=== PATIENT | female | born 1980 | race Caucasian/White ===

== ENCOUNTER 2021-04-09 06:24 | Day surgery (SDC) | payer OTHER, SELFPAY ==
[~2021-04-09] VITALS: Ht 165.1 cm; Wt 96.6 kg
[2021-04-09] MEDS ORDERED: fentaNYL citrate 0.05 MG/ML VIAL ONE (08:02)
[2021-04-09] MEDS ORDERED: diphenhydrAMINE 50 MG/ML VIAL ONE (08:02)
[2021-04-09] MEDS ORDERED: MIDAZOLAM 5 MG/5 ML VIAL ONE (08:02)
[2021-04-09] MEDS ORDERED: fentaNYL citrate 0.05 MG/ML VIAL IVP ONE (08:45)
[2021-04-09] MEDS ORDERED: MIDAZOLAM 2 MG/2 ML VIAL IVP ONE (08:45)
== END 2021-04-09 08:59 | disposition home or self-care (01) ==
LOC: MDS 06:24 → MMU 06:25 → MDS 08:59
PROVIDERS: ATTEND Internal Medicine Gastroenterology
DX: K74.69 Other cirrhosis of liver (principal); I85.00 Esophageal varices without bleeding; K52.9 Noninfective gastroenteritis and colitis, unspecified; Z79.01 Long term (current) use of anticoagulants; Z79.899 Other long term (current) drug therapy; Z20.822 Contact with and (suspected) exposure to COVID-19
CPT/HCPCS: 43235; J2250; J3010; U0003; J1200

== ENCOUNTER 2021-11-12 07:14 | Day surgery (SDC) | payer OTHER, SELFPAY ==
[~2021-11-12] VITALS: Ht 165.1 cm; Wt 95.3 kg
[2021-11-12] MEDS ORDERED: fentaNYL citrate 0.05 MG/ML VIAL ONE (09:25)
[2021-11-12] MEDS ORDERED: diphenhydrAMINE 50 MG/ML VIAL ONE (09:25)
[2021-11-12] MEDS ORDERED: MIDAZOLAM 5 MG/5 ML VIAL ONE (09:26)
[2021-11-12] MEDS ORDERED: MIDAZOLAM 2 MG/2 ML VIAL IVP ONE (13:05)
[2021-11-12] MEDS ORDERED: fentaNYL citrate 0.05 MG/ML VIAL IVP ONE (13:05)
[2021-11-12] MEDS ORDERED: diphenhydrAMINE 50 MG/ML VIAL IVP ONE (13:05)
== END 2021-11-12 10:36 | disposition home or self-care (01) ==
LOC: MDS 07:14 → MMU 07:15 → MDS 10:36
PROVIDERS: ATTEND Internal Medicine Gastroenterology
DX: K70.30 Alcoholic cirrhosis of liver without ascites (principal); I85.10 Secondary esophageal varices without bleeding; Z79.01 Long term (current) use of anticoagulants; Z79.899 Other long term (current) drug therapy; Z20.822 Contact with and (suspected) exposure to COVID-19
CPT/HCPCS: 43244; 81025; 87426; J1200; J2250; J3010

== ENCOUNTER 2021-11-26 07:25 | Day surgery (SDC) | payer OTHER ==
[~2021-11-26] VITALS: Ht 165.1 cm; Wt 88.9 kg
[2021-11-26] MEDS ORDERED: diphenhydrAMINE 50 MG/ML VIAL ONE (09:08)
[2021-11-26] MEDS ORDERED: fentaNYL citrate 0.05 MG/ML VIAL ONE (09:09)
[2021-11-26] MEDS ORDERED: MIDAZOLAM 5 MG/5 ML VIAL ONE (09:09)
[2021-11-26] MEDS ORDERED: PROMETHAZINE 25 MG/ML VIAL ONE (11:35)
[2021-11-26] MEDS ORDERED: diphenhydrAMINE 50 MG/ML VIAL IVP ONE (13:05)
[2021-11-26] MEDS ORDERED: MIDAZOLAM 2 MG/2 ML VIAL IVP ONE (13:05)
[2021-11-26] MEDS ORDERED: fentaNYL citrate 0.05 MG/ML VIAL IVP ONE (13:05)
== END 2021-11-26 10:12 | disposition home or self-care (01) ==
LOC: MOR 07:25 → MMU 07:25 → MOR 10:12
PROVIDERS: ATTEND Internal Medicine Gastroenterology
DX: K70.30 Alcoholic cirrhosis of liver without ascites (principal); I85.10 Secondary esophageal varices without bleeding; I81 Portal vein thrombosis; Z79.01 Long term (current) use of anticoagulants; Z79.899 Other long term (current) drug therapy; Z20.822 Contact with and (suspected) exposure to COVID-19
CPT/HCPCS: 43244; 81025; 87426; J1200; J2250; J3010; J2550

== ENCOUNTER 2021-12-31 09:47 | Day surgery (SDC) | payer OTHER ==
[~2021-12-31] VITALS: Ht 165.1 cm; Wt 97.5 kg
[2021-12-31] MEDS ORDERED: diphenhydrAMINE 50 MG/ML VIAL ONE (11:36)
[2021-12-31] MEDS ORDERED: fentaNYL citrate 0.05 MG/ML VIAL ONE (11:36)
[2021-12-31] MEDS ORDERED: MIDAZOLAM 5 MG/5 ML VIAL ONE (11:37)
[2021-12-31] MEDS ORDERED: diphenhydrAMINE 50 MG/ML VIAL IVP ONE (13:50)
[2021-12-31] MEDS ORDERED: MIDAZOLAM 2 MG/2 ML VIAL IVP ONE (13:50)
[2021-12-31] MEDS ORDERED: fentaNYL citrate 0.05 MG/ML VIAL IVP ONE (13:50)
== END 2021-12-31 13:05 | disposition home or self-care (01) ==
LOC: MDS 09:47 → MMU 09:58 → MDS 13:05
PROVIDERS: ATTEND Internal Medicine Gastroenterology
DX: I85.00 Esophageal varices without bleeding (principal); Z79.899 Other long term (current) drug therapy; Z20.822 Contact with and (suspected) exposure to COVID-19
CPT/HCPCS: 43235; 81025; 87426; J1200; J2250; J3010

== ENCOUNTER 2022-02-04 07:32 | Day surgery (SDC) | payer OTHER ==
[~2022-02-04] VITALS: Ht 165.1 cm; Wt 95.3 kg
[2022-02-04 08:07] LABS: BASOPHILS % (AUTO) 0.3 % (0.0-2.0); EOSINOPHILS # (AUTO) 0.1 K/uL (0-0.4); EOSINOPHILS % (AUTO) 2.9 % (0.0-4.0); HEMATOCRIT 36.6 % (36-48); HEMOGLOBIN 12.1 g/dL (12.0-16.0); LYMPHOCYTES # (AUTO) 0.5 K/uL (2.5-16.5); MEAN CORPUSCULAR HEMOGLOBIN 28 pg (27-31); MEAN CORPUSCULAR HGB CONC 33 g/dL (33-37); MEAN CORPUSCULAR VOLUME 85.4 fL (80-94); MONOCYTES # (AUTO) 0.4 K/uL (0.8-1.0); MONOCYTES % (AUTO) 9.9 % (1.7-9.3); NEUTROPHILS # (AUTO) 2.6 K/uL (1.8-7.7); NEUTROPHILS % (AUTO) 72.9 % (42.2-75.2); PLATELET COUNT (AUTO) 62 K/uL (140-450); RED BLOOD CELL COUNT(AUTO) 4.29 MIL/uL (4.20-5.40); RED CELL DISTRIBUTION WIDTH 16.7 % (11.6-13.7); WHITE BLOOD COUNT (AUTO) 3.6 K/uL (4.8-10.8)
[2022-02-04 08:25] LABS: ALBUMIN 3.1 g/dL (3.4-5.0); CARBON DIOXIDE 23.1 mmol/L (21-32); CREATININE 0.5 mg/dL (0.6-1.3); POTASSIUM 4.1 mmol/L (3.5-5.1); TOTAL BILIRUBIN 0.6 mg/dL (0.0-1.0)
[2022-02-04] MEDS ORDERED: PROPOFOL 200 MG/20 ML VIAL IV ONE ×2 (09:13)
[2022-02-04] MEDS ORDERED: hydrALAZINE 20 MG/ML VIAL IVP PRN (09:30)
[2022-02-04] MEDS ORDERED: LACTATED RINGERS 1,000 ML IV SCH (09:30)
[2022-02-04] MEDS ORDERED: LABETALOL 20 MG/4 ML VIAL IVP PRN (09:30)
== END 2022-02-04 11:11 | disposition home or self-care (01) ==
LOC: MDS 07:32 → MMU 07:32 → MDS 11:11
PROVIDERS: ATTEND Internal Medicine Gastroenterology
DX: K70.30 Alcoholic cirrhosis of liver without ascites (principal); I85.10 Secondary esophageal varices without bleeding; I10 Essential (primary) hypertension; Z20.822 Contact with and (suspected) exposure to COVID-19; Z79.899 Other long term (current) drug therapy
CPT/HCPCS: 36415; 43244; 80053; 81025; 85025; 87426; J2704

== ENCOUNTER 2022-03-18 07:23 | Day surgery (SDC) | payer OTHER ==
[~2022-03-18] VITALS: Ht 160 cm; Wt 95.3 kg
[2022-03-18 08:09] LABS: BASOPHILS % (AUTO) 0.4 % (0.0-2.0); EOSINOPHILS # (AUTO) 0.1 K/uL (0-0.4); EOSINOPHILS % (AUTO) 3.4 % (0.0-4.0); HEMATOCRIT 34.4 % (36-48); HEMOGLOBIN 11.2 g/dL (12.0-16.0); LYMPHOCYTES # (AUTO) 0.4 K/uL (2.5-16.5); LYMPHOCYTES % (AUTO) 14.6 % (20.5-51.1); MEAN CORPUSCULAR HEMOGLOBIN 28 pg (27-31); MEAN CORPUSCULAR HGB CONC 33 g/dL (33-37); MEAN CORPUSCULAR VOLUME 84.4 fL (80-94); MONOCYTES # (AUTO) 0.3 K/uL (0.8-1.0); MONOCYTES % (AUTO) 11.2 % (1.7-9.3); NEUTROPHILS % (AUTO) 70.4 % (42.2-75.2); PLATELET COUNT (AUTO) 62 K/uL (140-450); RED BLOOD CELL COUNT(AUTO) 4.07 MIL/uL (4.20-5.40); WHITE BLOOD COUNT (AUTO) 2.9 K/uL (4.8-10.8)
[2022-03-18 08:22] LABS: ALBUMIN 3.1 g/dL (3.4-5.0); CARBON DIOXIDE 25.9 mmol/L (21-32); CREATININE 0.5 mg/dL (0.6-1.3); POTASSIUM 3.9 mmol/L (3.5-5.1); TOTAL BILIRUBIN 0.6 mg/dL (0.0-1.0)
[2022-03-18] MEDS ORDERED: PROPOFOL 200 MG/20 ML VIAL IV ONE ×3 (11:00→11:46)
[2022-03-18] MEDS ORDERED: LABETALOL 20 MG/4 ML VIAL IVP PRN (12:03)
[2022-03-18] MEDS ORDERED: hydrALAZINE 20 MG/ML VIAL IVP PRN (12:03)
[2022-03-18] MEDS ORDERED: LACTATED RINGERS 1,000 ML IV SCH (12:05)
[2022-03-18] MEDS ORDERED: ONDANSETRON 4 MG/2 ML VIAL IVP PRN (12:05)
== END 2022-03-18 12:40 | disposition home or self-care (01) ==
LOC: MDS 07:23 → MMU 07:25 → MDS 12:40
PROVIDERS: ATTEND Internal Medicine Gastroenterology
DX: K70.30 Alcoholic cirrhosis of liver without ascites (principal); I85.10 Secondary esophageal varices without bleeding; I81 Portal vein thrombosis; E66.01 Morbid (severe) obesity due to excess calories; K21.9 Gastro-esophageal reflux disease without esophagitis; Z79.01 Long term (current) use of anticoagulants; Z79.899 Other long term (current) drug therapy; Z20.822 Contact with and (suspected) exposure to COVID-19; Z68.37 Body mass index [BMI] 37.0-37.9, adult
CPT/HCPCS: 36415; 43244; 80053; 81025; 85025; 87426; J2704

== ENCOUNTER 2022-04-01 08:25 | Day surgery (SDC) | payer OTHER ==
[~2022-04-01] VITALS: Ht 165.1 cm; Wt 97.5 kg
[2022-04-01 08:55] LABS: BASOPHILS % (AUTO) 0.5 % (0.0-2.0); EOSINOPHILS # (AUTO) 0.1 K/uL (0-0.4); EOSINOPHILS % (AUTO) 3.5 % (0.0-4.0); HEMATOCRIT 37.3 % (36-48); HEMOGLOBIN 12.1 g/dL (12.0-16.0); LYMPHOCYTES # (AUTO) 0.5 K/uL (2.5-16.5); LYMPHOCYTES % (AUTO) 14.1 % (20.5-51.1); MEAN CORPUSCULAR HEMOGLOBIN 27 pg (27-31); MEAN CORPUSCULAR HGB CONC 32 g/dL (33-37); MEAN CORPUSCULAR VOLUME 83.1 fL (80-94); MONOCYTES # (AUTO) 0.5 K/uL (0.8-1.0); NEUTROPHILS # (AUTO) 2.7 K/uL (1.8-7.7); NEUTROPHILS % (AUTO) 69.9 % (42.2-75.2); PLATELET COUNT (AUTO) 68 K/uL (140-450); RED BLOOD CELL COUNT(AUTO) 4.48 MIL/uL (4.20-5.40); RED CELL DISTRIBUTION WIDTH 17.2 % (11.6-13.7); WHITE BLOOD COUNT (AUTO) 3.8 K/uL (4.8-10.8)
[2022-04-01 10:35] LABS: ALBUMIN 3.2 g/dL (3.4-5.0); ANION GAP 7.8 (8-16); CARBON DIOXIDE 27.4 mmol/L (21-32); CREATININE 0.6 mg/dL (0.6-1.3); POTASSIUM 4.2 mmol/L (3.5-5.1); TOTAL BILIRUBIN 0.4 mg/dL (0.0-1.0)
[2022-04-01] MEDS ORDERED: LABETALOL 20 MG/4 ML VIAL IVP PRN (11:18)
[2022-04-01] MEDS ORDERED: LACTATED RINGERS 1,000 ML IV SCH (11:20)
[2022-04-01] MEDS ORDERED: ONDANSETRON 4 MG/2 ML VIAL IVP PRN (11:20)
[2022-04-01] MEDS ORDERED: PROPOFOL 200 MG/20 ML VIAL IV ONE ×3 (11:24)
[2022-04-01] MEDS ORDERED: hydrALAZINE 20 MG/ML VIAL IVP PRN (11:28)
== END 2022-04-01 12:40 | disposition home or self-care (01) ==
LOC: MMU 08:25 → MDS 08:25
PROVIDERS: ATTEND Internal Medicine Gastroenterology
DX: K70.30 Alcoholic cirrhosis of liver without ascites (principal); I85.10 Secondary esophageal varices without bleeding; Z20.822 Contact with and (suspected) exposure to COVID-19; Z90.49 Acquired absence of other specified parts of digestive tract; Z79.899 Other long term (current) drug therapy
CPT/HCPCS: 36415; 43244; 80053; 81025; 85025; 87426; J2405; J2704

== ENCOUNTER 2022-05-20 06:28 | Day surgery (SDC) | payer OTHER ==
[~2022-05-20] VITALS: Ht 165.1 cm; Wt 97.5 kg
[2022-05-20 07:09] LABS: BASOPHILS % (AUTO) 0.4 % (0.0-2.0); EOSINOPHILS # (AUTO) 0.1 K/uL (0-0.4); EOSINOPHILS % (AUTO) 2.9 % (0.0-4.0); HEMATOCRIT 36.4 % (36-48); HEMOGLOBIN 11.9 g/dL (12.0-16.0); LYMPHOCYTES # (AUTO) 0.5 K/uL (2.5-16.5); LYMPHOCYTES % (AUTO) 16.9 % (20.5-51.1); MEAN CORPUSCULAR HEMOGLOBIN 27 pg (27-31); MEAN CORPUSCULAR HGB CONC 33 g/dL (33-37); MEAN CORPUSCULAR VOLUME 83.1 fL (80-94); MONOCYTES # (AUTO) 0.4 K/uL (0.8-1.0); MONOCYTES % (AUTO) 11.8 % (1.7-9.3); NEUTROPHILS # (AUTO) 2.1 K/uL (1.8-7.7); PLATELET COUNT (AUTO) 68 K/uL (140-450); RED BLOOD CELL COUNT(AUTO) 4.38 MIL/uL (4.20-5.40); RED CELL DISTRIBUTION WIDTH 16.9 % (11.6-13.7); WHITE BLOOD COUNT (AUTO) 3.1 K/uL (4.8-10.8)
[2022-05-20 07:19] LABS: ALBUMIN 3.2 g/dL (3.4-5.0); ANION GAP 10.8 (8-16); CREATININE 0.6 mg/dL (0.6-1.3); POTASSIUM 3.8 mmol/L (3.5-5.1); TOTAL BILIRUBIN 0.5 mg/dL (0.0-1.0)
[2022-05-20] MEDS ORDERED: hydrALAZINE 20 MG/ML VIAL IVP PRN (09:08)
[2022-05-20] MEDS ORDERED: LABETALOL 20 MG/4 ML VIAL IVP PRN (09:08)
[2022-05-20] MEDS ORDERED: LACTATED RINGERS 1,000 ML IV SCH (09:10)
[2022-05-20] MEDS ORDERED: ONDANSETRON 4 MG/2 ML VIAL IVP PRN (09:10)
[2022-05-20] MEDS ORDERED: PROPOFOL 200 MG/20 ML VIAL IV ONE (09:47)
== END 2022-05-20 10:00 | disposition home or self-care (01) ==
LOC: MOR 06:28 → MMU 06:29 → MOR 10:00
PROVIDERS: ATTEND Internal Medicine Gastroenterology
DX: I85.00 Esophageal varices without bleeding (principal); K70.31 Alcoholic cirrhosis of liver with ascites; I81 Portal vein thrombosis; Z79.899 Other long term (current) drug therapy; Z20.822 Contact with and (suspected) exposure to COVID-19; Z88.8 Allergy status to other drugs, medicaments and biological substances
CPT/HCPCS: 36415; 43239; 80053; 81025; 85025; 87426; J2704

== ENCOUNTER 2023-06-16 10:09 | Day surgery (SDC) | payer OTHER ==
[~2023-06-16] VITALS: Ht 165.1 cm; Wt 77.1 kg
[2023-06-16 15:51] LABS: GLUCOSE,BODY FLUID 88 mg/dL
[2023-06-16 16:03] LABS: APPEARANCE,SPUN,BODY FLUID CLEAR (CLEAR); APPEARANCE,UNSPUN,BODY FLUID CLEAR (CLEAR); COLOR,BODY FLUID LT YELLOW (LT YELLOW); SPECIMENTYPE,BODY FLUID PARACENTESIS; TOTAL VOLUME,BODY FLUID 4000 mL
[2023-06-16 16:10] LABS: PROTEIN, BODY FLUID 1.3 g/dL
[2023-06-16 16:33] LABS: RBC, BODY FLUID 175 /cu. mm.
[2023-06-16 21:23] LABS: POLYNUCLEAR, BODY FLUID 24 %; WBC, BODY FLUID 23 /cu. mm.
== END 2023-06-16 13:12 | disposition home or self-care (01) ==
LOC: MDS 10:09 → MMU 10:29 → MDS 13:12
PROVIDERS: ATTEND Internal Medicine Gastroenterology
DX: K70.31 Alcoholic cirrhosis of liver with ascites (principal); Z79.899 Other long term (current) drug therapy
CPT/HCPCS: 36415; 49083; 82945; 84157; 87070; 87075; 87205; 89051; J2001; Q0092